=== PATIENT | male | born 1990 | race African-American/Black ===

== ENCOUNTER 2016-06-21 19:35 | Emergency (ER) | payer OTHER ==
--- NOTE | ~2016-06-21 | CR72 ---
[facility] A Service of [facility] & [facility] RADIOLOGY TEXT RESULTS PATIENT: AAMIR SINGH LOCATION: [facility] : [birth year] UNIT #: [id number] AGE: [address]: Quintin Tam MD SEX: M ORDER DR: [id number] [facility] [address] [place], [place] [address] [id number] E MR#: [id number] Acc #: [id number] NAME: AAMIR SINGH : 1990 SEX: M STUDY DATE/TIME: 06/21/2016 19:54 UNIT: [facility] ROOM: STUDY DESCRIPTION: CR Chest Single View Portable Attending Physician: Quintin Tam M.D. Ordering Physician: Quintin Tam M.D. Primary Care Physician: Primary Care Physician No MEDICAL IMAGING REPORT This report is preliminary unless electronic signature is present EXAM Portable chest, 06/21/2016 HISTORY Dizziness and lightheadedness today. FINDINGS A single AP portable view of the chest shows both lungs to be clear. The heart is normal in size. The mediastinal contour is normal. No significant bone abnormalities are seen. IMPRESSION Normal portable chest. Dictated by... Pool Ovalle M.D. THIS IS AN ELECTRONICALLY VERIFIED REPORT Pool Ovalle M.D. at 06/22/2016 10:56 AM BENJAMÍN/love TD: 06/22/2016 04:09 JOB #: [id number] MEDICAL IMAGING REPORT COPY
--- NOTE | ~2016-06-21 | EKG ---
PATIENT: AAMIR SINGH UNIT #: [id number] Ventricular Rate: 54 BPM Atrial Rate: 54 BPM P-R Interval: 148 ms QRS Duration: 116 ms Q-T Interval: 374 ms QTC Calculation(Bezet): 354 ms P [place]: 70 degrees Calculated R [place]: 90 degrees Calculated T [place]: 76 degrees Diagnosis Line: Sinus bradycardia Diagnosis Line: Rightward axis Diagnosis Line: Incomplete right bundle branch block Diagnosis Line: Borderline ECG Diagnosis Line: No previous ECGs available Diagnosis Line: Confirmed by SOLANGE SANTANA MD ([id number]) on 06/22/2016 Diagnosis Line: 7:32:29 PM INTERPRETING MD: MAX PEARL
== END 2016-06-21 20:58 | disposition home or self-care (01) ==
LOC: CED 19:35
DX: R55 Syncope and collapse (principal); R73.9 Hyperglycemia, unspecified
CPT/HCPCS: 36415; 71010; 82947; 93005; 99284